=== PATIENT | male | born 1955 | race Caucasian/White ===

== ENCOUNTER → 2018-06-12 | Outpatient (CLI) | payer OTHER | END | disposition home or self-care (01) | LOC: OIH 10:57 | PROVIDERS: ATTEND Internal Medicine | DX: M19.012 Primary osteoarthritis, left shoulder (principal); M47.894 Other spondylosis, thoracic region; J84.10 Pulmonary fibrosis, unspecified | CPT/HCPCS: 71100; 73030 ==

== ENCOUNTER → 2018-09-26 | Outpatient (CLI) | payer OTHER | END | disposition home or self-care (01) | LOC: OIH 11:25 | PROVIDERS: ATTEND Internal Medicine | DX: I10 Essential (primary) hypertension (principal) | CPT/HCPCS: 71046 ==

== ENCOUNTER 2018-10-04 10:00 | Inpatient (IN) | payer MEDICARE ==
[~2018-10-04] VITALS: Ht 177.8 cm; Wt 91.7 kg
[2018-10-04 09:25] VITALS: BP 116/79
[~2018-10-04 10:00] MED LIST: BUPR300T53 PO; METO-409 PO
[2018-10-08] VITALS (21 sets, daily range): BP systolic 104–134; BP diastolic 47–79
[2018-10-08] MEDS: CEFAZOLIN SODIUM 1 GM VIAL IVP SCH ×2 (05:00→08:00)
[2018-10-08] MEDS ORDERED: LACTATED RINGERS 1000ML 1,000 ML IV ONE (06:13)
[2018-10-08] MEDS ORDERED: DEXAMETHASONE SOD PHOSPHATE 10MG/ML 1ML VIAL ONE ×2 (06:53→07:01)
[2018-10-08] MEDS ORDERED: SUCCINYLCHOLINE 200MG/10ML SYR ONE ×2 (06:53→11:44)
[2018-10-08] MEDS ORDERED: GLYCOPYRROLATE 1 MG/5 ML SYRINGE ONE (06:53)
[2018-10-08] MEDS ORDERED: LIDOCAINE PF 2% 5ML ABBOJECT ONE (06:53)
[2018-10-08] MEDS ORDERED: MIDAZOLAM HCL 1 MG/ML 2ML VIAL ONE (06:54)
[2018-10-08] MEDS ORDERED: NEOSTIGMINE 5MG/5ML SYR IV ONE (06:54)
[2018-10-08] MEDS ORDERED: ROCURONIUM 10MG/1ML SYR 10 MG/ML ML ONE (06:54)
[2018-10-08] MEDS ORDERED: PROPOFOL 10 MG/ML 20ML VIAL IV ONE (06:54)
[2018-10-08] MEDS ORDERED: ONDANSETRON HCL 4 MG/2 ML VIAL ONE (06:54)
[2018-10-08] MEDS ORDERED: FENTANYL CITRATE PF 50 MCG/1 ML 2ML VIAL ONE ×4 (06:55→12:51)
[2018-10-08] MEDS ORDERED: BACITRACIN 50,000 UNIT VIAL ONE (07:53)
[2018-10-08] MEDS ORDERED: THROMBIN-JMI 20000 UNIT KIT TP ONE (07:53)
[2018-10-08] MEDS ORDERED: BUPIVACAINE/EPI/PF 0.25% 30ML VIAL IJ ONE (07:53)
[2018-10-08] MEDS ORDERED: MANNITOL 20% 500ML BAG 500 ML IV ONE (07:54)
[2018-10-08] MEDS ORDERED: LIDOCAINE HCL 4% LTA SOL 4 ML VIAL ONE (11:39)
[2018-10-08] MEDS ORDERED: PHENYLEPHRINE HCL 10 MG/ML 1ML VIAL IV ONE (11:48)
[2018-10-08] MEDS: LACTATED RINGERS 1000ML 1,000 ML IV SCH ×2 (12:11→23:54)
[2018-10-08] MEDS ORDERED: PROMETHAZINE HCL 25 MG/ML 1ML AMPULE IM PRN (12:15)
[2018-10-08] MEDS ORDERED: SODIUM CHLORIDE 0.9% 10 ML VIAL IVP PRN (12:15)
[2018-10-08] MEDS ORDERED: MEPERIDINE-PF 25 MG/ML SYG ONE (13:02)
[2018-10-08] MEDS: DEXAMETHASONE SOD PHOSPHATE 4 MG/ML 1ML VIAL IVP SCH ×3 (15:09→23:54)
[2018-10-08] MEDS: HYDROCODONE/ACETAMINOPHEN 5/325 MG TAB PO PRN ×2 (15:10→20:31)
--- NOTE | 2018-10-08 15:47 | NUR ---
DCP CM met with pt discussed dc plans. Pt is independent prior to surgery, lives at home with spouse. Denies any equipments/services. Pt feels safe to go back home, spouse able to assist with transportation and needs as necessary. DC plan to home once stable. CM to cont to follow up. Addendum: 10/08/18 at 1551 by MARIA ALEJANDRA ALSTON LVN CM Amended: Links added.
[2018-10-08] MEDS ORDERED: CEFAZOLIN SODIUM 1 GM VIAL IVP SCH (16:00)
[2018-10-08] MEDS ORDERED: CEFAZOLIN SODIUM 1 GM VIAL ONE (17:37)
[2018-10-08] MEDS: MORPHINE SULFATE 2 MG/ML 1ML SYG IVP PRN ×2 (19:20→22:24)
[2018-10-09] MEDS: MORPHINE SULFATE 2 MG/ML 1ML SYG IVP PRN (01:55)
[2018-10-09 03:20] VITALS: BP 129/84
[2018-10-09] MEDS: DEXAMETHASONE SOD PHOSPHATE 4 MG/ML 1ML VIAL IVP SCH (04:53)
--- NOTE | 2018-10-09 07:15 | NUR ---
NEUROSURGEON DR. COHEN IN TO SEE PATIENT. ORDERS RECEIVED TO DISCHARGE PATIENT TO HOME.
[2018-10-09 08:07] VITALS: BP 144/77
--- NOTE | 2018-10-09 08:30 | NUR ---
INSTRUCTIONS DISCHARGE INSTRUCTIONS GIVEN TO PATIENT AND SPOUSE USING TEACH BACK. DRESSING AND JOCY DRAIN REMOVAL PERFORMED AT THIS TIME PER MD ORDER. PATIENT TOLERATED PROCEDURE WELL. IV REMOVED TO LEFT ARM WITH TIP INTACT. DIRECT PRESSURE APPLIED UNTIL BLEEDING CONTROLLED THEN SITE COVERED WITH GAUZE AND SECURED WITH A BAND-AID. NO QUESTIONS OR CONCERNS VOICED AT THIS TIME.
[2018-10-09] MEDS ORDERED: Bupropion HCl (Wellbutrin Xl) 300 MG PO SCH (09:00)
[2018-10-09] MEDS ORDERED: Metoprolol Succinate 100 MG PO SCH (09:00)
== END 2018-10-09 08:48 | disposition home or self-care (01) | DRG 473 ==
LOC: EDSTATUS 10:00 → DAHIP 10-08 05:51 → 4BH 10-08 13:24
PROVIDERS: ADMIT Neurological Surgery; ATTEND Neurological Surgery
PROC: 4A11X4G Monitoring of Peripheral Nervous Electrical Activity, Intraoperative, External Approach (ICD-10-PCS; 2018-10-08)
PROC: 0RG20A0 Fusion of 2 or more Cervical Vertebral Joints with Interbody Fusion Device, Anterior Approach, Anterior Column, Open Approach (ICD-10-PCS; principal; 2018-10-08 07:30)
PROC: 0RG10K0 Fusion of Cervical Vertebral Joint with Nonautologous Tissue Substitute, Anterior Approach, Anterior Column, Open Approach (ICD-10-PCS; 2018-10-08 07:30)
PROC: 0RB30ZZ Excision of Cervical Vertebral Disc, Open Approach (ICD-10-PCS; 2018-10-08 07:30)
DX: M47.22 Other spondylosis with radiculopathy, cervical region (principal); F32.9 Major depressive disorder, single episode, unspecified; I10 Essential (primary) hypertension; E66.01 Morbid (severe) obesity due to excess calories; M25.78 Osteophyte, vertebrae; M48.02 Spinal stenosis, cervical region; Z85.89 Personal history of malignant neoplasm of other organs and systems; Z98.1 Arthrodesis status; Z98.84 Bariatric surgery status; Z68.29 Body mass index [BMI] 29.0-29.9, adult
CPT/HCPCS: 72020; A4218; A4344; G0378; J0330; J0690; J1100; J2001; J2175; J2250; J2370; J2405; J2704; J2710; J3010; J3490; J7030; J7120

== ENCOUNTER → 2018-11-01 | Outpatient (CLI) | payer MEDICARE | END | disposition home or self-care (01) | LOC: OIH 09:55 | PROVIDERS: ATTEND Neurological Surgery | DX: M47.812 Spondylosis without myelopathy or radiculopathy, cervical region (principal); M43.22 Fusion of spine, cervical region | CPT/HCPCS: 72040 ==

== ENCOUNTER 2021-07-16 22:39 | Emergency (ER) | payer MEDICARE ==
[~2021-07-16] VITALS: Ht 175.3 cm; Wt 97.5 kg
[2021-07-16 23:07] VITALS: BP 138/64
[2021-07-16] MEDS ORDERED: ONDANSETRON 4MG INJ ONE (23:33)
[2021-07-16] MEDS ORDERED: ONDANSETRON 4MG TABLET ONE (23:34)
[2021-07-17] MEDS ORDERED: HYDR25SU38 RC (00:25)
[2021-07-17] MEDS ORDERED: LACTULOSE 20 GM/30 ML UDCUP ONE (00:26)
[2021-07-17] MEDS ORDERED: LACTULOSE 20 GM/30 ML UDCUP PO ONE (00:30)
== END 2021-07-17 00:28 | disposition home or self-care (01) ==
LOC: EDH 22:39
DX: K56.41 Fecal impaction (principal); K64.9 Unspecified hemorrhoids; E78.00 Pure hypercholesterolemia, unspecified; I10 Essential (primary) hypertension; Z79.899 Other long term (current) drug therapy; Z90.49 Acquired absence of other specified parts of digestive tract
CPT/HCPCS: 82270; 99284; Q0162; J2405